=== PATIENT | female | born 1950 | race Caucasian/White ===

== ENCOUNTER → 2016-06-01 | Day surgery (SDC) | payer OTHER ==
[~2016-06-01] MED LIST: BUPIVACAINE HCL PF 0.5% 10 ML VIAL ONE; KETOROLAC TROMETHAMINE 30 MG/ML (IVP) VIAL IV PUSH ONE; LACTATED RINGER'S 1000 ML INJ 1,000 ML ONE; MIDAZOLAM HCL 2 MG/2 ML VIAL ONE; ONDANSETRON HCL 4 MG/2 ML VIAL IV PUSH ONE; PROPOFOL 100 MG/10 ML INJ IV ONE; ceFAZolin INJ 1,000 MG VIAL ONE
--- NOTE | 2016-06-02 06:34 | MP ---
cc: EJ LOBO DATE OF SURGERY: 06/01/2016 PREOPERATIVE DIAGNOSIS Left elbow lipoma mass. POSTOPERATIVE DIAGNOSES Left elbow lipoma mass. PROCEDURE Removal of left elbow lipoma mass. SURGEON Dr. Ej Lobo SALES ACCOUNT COORDINATOR Ej Kim PA-C ANESTHESIA General. ESTIMATED BLOOD LOSS Less than 10 cc. TOURNIQUET TIME Zero minutes. COMPLICATIONS None. JUSTIFICATION The patient is a 66-year-old female who does have a palpable mass which is painful over the ulnar border of the left forearm. She was evaluated by the undersigned at the [facility]. The patient was counseled as to the risks, benefits and alternatives to the above-named proposed surgical procedure. She did wish to proceed with surgery. PROCEDURE IN DETAIL Written consent was obtained. The patient was identified by name, taken to the operating room and placed supine on the operating table. General anesthesia was administered as well as one gram of IV Ancef. The left upper extremity was prepped and draped using isopropyl alcohol, Hibiclens solution and DuraPrep solution. A longitudinal incision was made over the left elbow and proximal forearm. Careful circumferential dissection was carried around the mass which appeared to be completely excised. The surgical wound was thoroughly irrigated with sterile saline solution. The subcutaneous layer was closed with 3-0 Vicryl suture. The skin was closed with Dermabond. Sterile dressing applied. The patient tolerated the procedure well with no intraoperative complications noted. MD AMILCAR Lindsay/NILS /1:28 PM /6:19 AM RONY
== END | disposition home or self-care (01) ==
LOC: ESDC 11:52
PROVIDERS: ATTEND Orthopaedic Surgery Sports Medicine
DX: D36.12 Benign neoplasm of peripheral nerves and autonomic nervous system, upper limb, including shoulder (principal)
CPT/HCPCS: 00400; 11406; 12032; 88304; J0690; J1885; J2250; J2405; J3010; J7120; 88305